=== PATIENT | female | born 1970 | race African-American/Black ===

== ENCOUNTER 2022-06-03 11:23 | Emergency (ER) | payer SELFPAY, OTHER ==
[2022-06-03] MEDS ORDERED: Bacitracin 1 PK ONE (12:12)
== END 2022-06-03 12:27 | disposition home or self-care (01) ==
LOC: CSHERS 11:23
DX: S93.401A Sprain of unspecified ligament of right ankle, initial encounter (principal); S80.02XA Contusion of left knee, initial encounter; I10 Essential (primary) hypertension; W01.0XXA Fall on same level from slipping, tripping and stumbling without subsequent striking against object, initial encounter

== ENCOUNTER 2024-02-11 14:58 | Outpatient (CLI) | payer BC | END 2024-02-11 14:59 | disposition home or self-care (01) | LOC: CSHMAMMO 14:58 | PROVIDERS: ATTEND Family Medicine | DX: Z12.31 Encounter for screening mammogram for malignant neoplasm of breast (principal) | CPT/HCPCS: 77063; 77067 ==